=== PATIENT | male | born 2000 | race African-American/Black ===

== ENCOUNTER 2024-05-27 15:08 | Emergency (ER) | payer OTHER ==
[~2024-05-27] VITALS: Ht 193 cm; Wt 77.1 kg
[2024-05-27 15:37] VITALS: O2SAT 100
[2024-05-27] MEDS: IBUPROFEN 600MG TABLET PO ONE (18:28)
[2024-05-27] MEDS ORDERED: IBUP-2029 MT (21:27)
[2024-05-27 21:47] VITALS: BP 122/72; PULSE 62; RESP 18; TEMP 36.66960; O2SAT 100
== END 2024-05-27 21:48 | disposition home or self-care (01) ==
LOC: ER 15:08
DX: J02.8 Acute pharyngitis due to other specified organisms (principal); B97.89 Other viral agents as the cause of diseases classified elsewhere
CPT/HCPCS: 87070; 87430; 99283

== ENCOUNTER 2024-05-31 06:30 | Emergency (ER) | payer OTHER ==
[~2024-05-31] VITALS: Ht 193 cm; Wt 85.7 kg
[~2024-05-31 06:30] MED LIST: IBUP-2029 MT
[2024-05-31 06:50] VITALS: O2SAT 99
[2024-05-31 07:17] VITALS: BP 131/64; PULSE 80; RESP 16; TEMP 99.5; O2SAT 99
[2024-05-31] MEDS: DEXAMETHASONE 10 MG/ML VIAL PO ONE (09:29)
[2024-05-31] MEDS ORDERED: BENZ1LOZ73 MT (09:31)
[2024-05-31] MEDS ORDERED: IBUP-2029 MT (09:31)
== END 2024-05-31 11:18 | disposition home or self-care (01) ==
LOC: ER 06:30
DX: J03.90 Acute tonsillitis, unspecified (principal)
CPT/HCPCS: 99283; J1100; Z7610 ×2